=== PATIENT | female | born 1975 | race African-American/Black ===

== ENCOUNTER 2017-07-29 00:36 | Emergency (ER) | payer SELFPAY ==
[~2017-07-29] VITALS: Ht 170.2 cm; Wt 95.3 kg
[2017-07-29] MEDS ORDERED: LOSA1TAB25 PO (01:20)
[2017-07-29] MEDS ORDERED: PRED20TA PO (01:20)
--- NOTE | 2017-07-29 01:20 | PHYS DOC ---
Adult General Chief Complaint Chief Complaint: SKIN RASH/ABSCESS HPI HPI Patient is a [age] year old [sex] who presents with [] Review of Systems Review of Systems Constitutional: Denies fever or chills [] Eyes: Denies change in visual acuity, redness, or eye pain [] HENT: Denies nasal congestion or sore throat [] Respiratory: Denies cough or shortness of breath [] Cardiovascular: No additional information not addressed in HPI [] GI: Denies abdominal pain, nausea, vomiting, bloody stools or diarrhea [] : Denies dysuria or hematuria [] Musculoskeletal: Denies back pain or joint pain [] Integument: Denies rash or skin lesions [] Neurologic: Denies headache, focal weakness or sensory changes [] Endocrine: Denies polyuria or polydipsia [] All other systems were reviewed and found to be within normal limits, except as documented in this note. Physical Exam Physical Exam Constitutional: Well developed, well nourished, no acute distress, non-toxic appearance. [] HENT: Normocephalic, atraumatic, bilateral external ears normal, oropharynx moist, no oral exudates, nose normal. [] Eyes: PERRLA, EOMI, conjunctiva normal, no discharge. [] Neck: Normal range of motion, no tenderness, supple, no stridor. [] Cardiovascular:Heart rate regular rhythm, no murmur [] Lungs & Thorax: Bilateral breath sounds clear to auscultation [] Abdomen: Bowel sounds normal, soft, no tenderness, no masses, no pulsatile masses. [] Skin: Warm, dry, no erythema, no rash. [] Back: No tenderness, no CVA tenderness. [] Extremities: No tenderness, no cyanosis, no clubbing, ROM intact, no edema. [] Neurologic: Alert and oriented X 3, normal motor function, normal sensory function, no focal deficits noted. [] Psychologic: Affect normal, judgement normal, mood normal. [] EKG EKG [] Radiology/Procedures Radiology/Procedures [] Course & Med Decision Making Course & Med Decision Making Pertinent Labs and Imaging studies reviewed. (See chart for details) [] Dragon Disclaimer Dragon Disclaimer This electronic medical record was generated, in whole or in part, using a voice recognition dictation system. Departure Departure: Impression: Primary Impression: Dermatitis Additional Impressions: Uncontrolled hypertension Rash Disposition: HOME, SELF-CARE Condition: IMPROVED Referrals: PCP,ALPESH (PCP) Patient Instructions: Hypertension, Rash Additional Instructions: As a result of not taking her blood pressure recently, your blood pressure is not well controlled at all today. You been given a dose of medication and your losartan prescription dispensed. Be sure to take it exactly as previously prescribed. It is not clear what is causing her nonspecific dermatitis. Take Benadryl 50 mg every 4-6 hours as needed for itching and take prednisone once a day for 5 more days as prescribed. Follow-up with one of the clinic doctors in 1 -2 days and return immediately for new severe or worsening symptoms Scripts Prednisone (PREDNISONE) 20 Mg Tablet 60 MG PO DAILY for 6 Days, #18 TAB Prov: DASHAWN BELLA MD 07/29/17 Losartan/Hydrochlorothiazide (LOSARTAN-HCTZ 100-12.5 MG TAB) 1 Each Tablet 1 TAB PO DAILY, #30 TAB 5 Refills Prov: DASHAWN BELLA MD 07/29/17 Problem Qualifiers DASHAWN BELLA MD Jul 29, 2017 01:20
[2017-07-29] MEDS ORDERED: LOSARTAN 50 MG TABLET. ONE (01:41)
[2017-07-29] MEDS: predniSONE 20 MG TABLET PO ONE (01:51)
[2017-07-29] MEDS ORDERED: LOSARTAN 50 MG TABLET. PO ONE (02:00)
[2017-07-29] MEDS: LOSARTAN 50 MG TABLET. PO ONE (02:00)
[2017-07-29] MEDS ORDERED: LOSARTAN 50 MG TABLET. PO SCH (02:00)
[2017-07-29 02:06] VITALS: BP 145/97
== END 2017-07-29 02:01 | disposition home or self-care (01) ==
LOC: ER 00:36
DX: L30.9 Dermatitis, unspecified (principal); I10 Essential (primary) hypertension
CPT/HCPCS: 99283; J7512